=== PATIENT | female | born 1955 | race Caucasian/White ===

== ENCOUNTER → 2016-09-08 | Outpatient (CLI) | payer BC, OTHER ==
--- NOTE | 2016-09-08 11:25 | XR ---
EXAMINATION TYPE: XR KUB DATE OF EXAM: 09/08/2016 11:09 AM HISTORY: Pain Comparison: None.Single KUB is submitted for interpretation. Findings: Right renal calculi: None Visualized. Limited by overlying bowel content. Right ureteral calculi: None Visualized. Left renal calculi: None Visualized. Left ureteral calculi: A linear radiopaque density at the left S5 level measures 1.2 cm x 2 mm . Pelvic calcifications: None Visualized. Bowel gas pattern is unremarkable. No free air. No mass effects. IMPRESSION: 1. linear radiopaque density at the left S5 level measures 1.2 cm x 2 mm .
== END | disposition home or self-care (01) ==
LOC: RADXRMAIN 10:56
PROVIDERS: ATTEND Urology
DX: N20.1 Calculus of ureter (principal)
CPT/HCPCS: 74000

== ENCOUNTER → 2017-02-10 | Outpatient (CLI) | payer BC, OTHER ==
--- NOTE | 2017-02-16 08:44 | MM ---
Reason for exam: screening (asymptomatic). Last mammogram was performed 2 years and 7 months ago. History: Patient is postmenopausal and has history of other cancer at age 19. Family history of premenopausal breast cancer in mother at age 48. Benign excisional biopsy of the right breast, 1989. Took estrogen for 7 years beginning at age 32. Physical Findings: A clinical breast exam by your physician is recommended on an annual basis and results should be correlated with mammographic findings. MG 3D Screening Mammo W/Cad Bilateral CC and MLO view(s) were taken. Prior study comparison: June 28, 2014, bilateral MG screening mammo w CAD. December 09, 2011, bilateral digital screening mammo w/CAD. There are scattered fibroglandular densities. No significant changes when compared with prior studies. ASSESSMENT: Benign, BI-RAD 2 RECOMMENDATION: Routine screening mammogram of both breasts in 1 year.
== END | disposition home or self-care (01) ==
LOC: RADMAMWWP 06:43
PROVIDERS: ATTEND Family Medicine
DX: Z12.31 Encounter for screening mammogram for malignant neoplasm of breast (principal)
CPT/HCPCS: 77063; G0202

== ENCOUNTER 2018-01-10 09:04 | Emergency (ER) | payer BC, OTHER ==
[2018-01-10 09:15] VITALS: BP 131/73; PULSE 80; RESP 18; TEMP 98.1
--- NOTE | 2018-01-10 10:43 | XR ---
EXAMINATION TYPE: XR ankle complete LT DATE OF EXAM: 01/10/2018 COMPARISON: NONE HISTORY: Pain TECHNIQUE: 3 views of the left ankle are submitted for evaluation. FINDINGS: Small focal ossific density adjacent to the medial aspect of the talus could reflect small avulsion fracture. Correlate clinically with point tenderness. Lateral soft tissue swelling noted. An kle mortise is intact. IMPRESSION: 1. Small focal ossific density adjacent to the medial aspect of the talus could reflect small avulsi on fracture. Correlate clinically with point tenderness.
--- NOTE | 2018-01-10 10:47 | ED ---
Lower Extremity Injury HPI - General Chief Complaint: Extremity Injury, Lower Stated Complaint: Left Ankle Injury Time Seen by Provider: 01/10/18 10:00 Source: patient, RN notes reviewed Mode of arrival: ambulatory Limitations: no limitations - History of Present Illness Initial Comments: This is a 62-year-old female with a benign history for any fractures bone who states she twisted her left ankle this morning when she was gardening. She complains of pain and swelling to the left ankle but no other injury. She is able walk on it but still has pain with the edema. No pain to the back to anything proximal to the ankle no foot pain. No other injuries reported. MD Complaint: ankle injury - Related Data Previous Rx's Medication Instructions Recorded Ibuprofen 800 mg PO Q6HR PRN #20 tablet 01/10/18 Allergies Allergy/AdvReac Type Severity Reaction Status Date / Time No Known Allergies Allergy Verified 01/10/18 10:49 Review of Systems ROS Statement: Those systems with pertinent positive or pertinent negative responses have been documented in the HPI. ROS Other: All systems not noted in ROS Statement are negative. Past Medical History Past Medical History: Diabetes Mellitus, Osteoarthritis (OA) Additional Past Medical History / Comment(s): interstitial cystitis History of Any Multi-Drug Resistant Organisms: None Reported Past Surgical History: Cholecystectomy Past Psychological History: No Psychological Hx Reported Smoking Status: Never smoker Past Alcohol Use History: None Reported Past Drug Use History: None Reported General Exam - General Exam Comments Initial Comments: This is a well-developed well-nourished awake alert oriented 3 female Limitations: no limitations General appearance: alert, in no apparent distress Head exam: Present: atraumatic, normocephalic, normal inspection Eye exam: Present: normal appearance, PERRL, EOMI. Absent: scleral icterus, conjunctival injection, periorbital swelling Cardiovascular Exam: Present: regular rate Extremities exam: Present: full ROM, tenderness, normal capillary refill, other (Edema to the left lateral ankle with tenderness palpation no tenderness above or below this. The foot is nontender to palpation) Back exam: Present: full ROM Neurological exam: Present: alert, oriented X3, CN II-XII intact Psychiatric exam: Present: normal affect, normal mood Skin exam: Present: warm, dry, intact, normal color. Absent: rash Course Vital Signs 01/10/18 09:13 Temperature 98.1 F Pulse Rate 80 Respiratory 18 Rate Blood Pressure 131/73 O2 Sat by Pulse 100 Oximetry Medical Decision Making - Medical Decision Making I did discuss findings with the patient are is evidence of a possible avulsion fracture of the talus on the medial aspect patient is somewhat tender over this area and reexamination. After discussion with her she'll be placed in a stirrup splint. She was cautioned about weightbearing crutches will be ordered she is a follow-up with orthopedics ice elevation and Motrin for pain. - Radiology Data Radiology results: image reviewed Interpreted by me: I did review the imaging and report there is evidence of a possible small avulsion injury to the medial aspect of the talus. The fibula is intact. Disposition Clinical Impression: Fracture of talus of left ankle, closed, Left ankle sprain Disposition: HOME SELF-CARE Condition: Good Instructions: Ankle Sprain (ED), Talar Fracture in Adults (ED) Additional Instructions: No weightbearing, use crutches, Motrin for pain, orthopedic follow-up Prescriptions: Ibuprofen 800 mg PO Q6HR PRN #20 tablet PRN Reason: Pain Is patient prescribed a controlled substance at d/c from ED?: No Referrals: Oscar Mccann DO [Primary Care Provider] - 1-2 days Rell Montalvo DO [Doctor of Osteopathic Medicine] - 1-2 days
[2018-01-10] MEDS ORDERED: IBUPROFEN 800 MG TAB PO STA (11:13)
== END 2018-01-10 11:30 | disposition home or self-care (01) ==
LOC: EC 09:04
DX: S92.152A Displaced avulsion fracture (chip fracture) of left talus, initial encounter for closed fracture (principal); X50.1XXA Overexertion from prolonged static or awkward postures, initial encounter; Y93.H2 Activity, gardening and landscaping; Y92.007 Garden or yard of unspecified non-institutional (private) residence as the place of occurrence of the external cause
CPT/HCPCS: 99283; 29515; 73610; L4350

== ENCOUNTER 2018-02-18 20:35 | Emergency (ER) | payer BC, OTHER ==
[2018-02-18] MEDS ORDERED: SODIUM CHLORIDE 0.9% 1,000 ML IV STA (21:51)
[2018-02-18] MEDS ORDERED: MORPHINE SULFATE 2 MG/ML SYRINGE IVP STA (21:51)
[2018-02-18] MEDS ORDERED: ONDANSETRON 4 MG/2 ML VIAL IVP STA (21:51)
--- NOTE | 2018-02-18 22:18 | ED ---
Abdominal Pain HPI - General Chief Complaint: Abdominal Pain Stated Complaint: Abd pain Time Seen by Provider: 02/18/18 21:43 Source: patient, RN notes reviewed Mode of arrival: ambulatory Limitations: no limitations - History of Present Illness Initial Comments: This is a 62-year-old female who presents to the emergency department with chief complaint of left lower quadrant abdominal pain. Patient states that she has been diagnosed with diverticulosis via colonoscopy. She states that for the past 4 days she has had left lower quadrant abdominal pain. She states the pain has increased in severity since day one. She also states that on the first day of pain onset, she had diarrhea. She reports nausea but denies vomiting. She reports chills but denies fevers. Denies chest pain or shortness of breath. Patient states the pain is made better by curling up into the position. - Related Data Home Medications Medication Instructions Recorded Confirmed Biotin 5 mg PO DAILY 01/10/18 02/18/18 Cholecalciferol [Vitamin D3] 1,000 unit PO DAILY 01/10/18 02/18/18 Cinnamon Bark [Cinnamon] 500 mg PO DAILY 01/10/18 02/18/18 Estrace (Unknown Dose) 1 tab PO HS 01/10/18 02/18/18 [place]-3 Fatty Acids/Fish Oil [Fish 1 cap PO DAILY 01/10/18 02/18/18 Oil 1,000 mg Softgel] Pentosan Polysulfate Sodium 100 mg PO TID 01/10/18 02/18/18 [Elmiron] Simvastatin [Zocor] 40 mg PO HS 01/10/18 02/18/18 metFORMIN HCL [Glucophage Xr] 500 mg PO DAILY 01/10/18 02/18/18 Previous Rx's Medication Instructions Recorded Ibuprofen 800 mg PO Q6HR PRN #20 tablet 01/10/18 Ciprofloxacin HCl 500 mg PO BID 10 Days #20 tab 02/19/18 metroNIDAZOLE [Flagyl] 500 mg PO TID #30 tab 02/19/18 Allergies Allergy/AdvReac Type Severity Reaction Status Date / Time acetaminophen [From [place]] Allergy Unknown Verified 02/18/18 21:08 hydrocodone [From [place]] Allergy Unknown Verified 02/18/18 21:08 Review of Systems ROS Statement: Those systems with pertinent positive or pertinent negative responses have been documented in the HPI. ROS Other: All systems not noted in ROS Statement are negative. Past Medical History Past Medical History: Diabetes Mellitus, Osteoarthritis (OA) Additional Past Medical History / Comment(s): interstitial cystitis History of Any Multi-Drug Resistant Organisms: None Reported Past Surgical History: Cholecystectomy Past Psychological History: No Psychological Hx Reported Smoking Status: Never smoker Past Alcohol Use History: None Reported Past Drug Use History: None Reported General Exam - General Exam Comments Initial Comments: General: Awake and alert, well-developed; in no apparent distress. HEENT: Head atraumatic, normocephalic. Pupils are equal, round and reactive to light. Extraocular movements intact. Oropharynx moist without erythema or exudate. Neck: Supple. Normal ROM. Cardiovascular: Regular rate and rhythm. No murmurs, rubs or gallops. Chest symmetrical. Respiratory: Lungs clear to auscultation bilaterally. No wheezes, rales or rhonchi. Normal respiratory effort with no use of accessory muscles. Abdomen: Soft, non-distended. There is significant left lower quadrant abdominal pain with associated guarding. No rigidity or rebound. Normal bowel sounds in all 4 quadrants. Musculoskeletal: Normal ROM, no tenderness bilateral upper and lower extremities. Ambulating normally. Skin: [place], warm and dry without rashes or lesions. Neurological: Alert and oriented x3. CN II-XII grossly intact. Speech is fluent and answers are appropriate. No focal neuro deficits. Psychiatric: Normal mood and affect. No overt signs of depression or anxiety noted. Limitations: no limitations Course Vital Signs 02/18/18 21:04 Temperature 98.7 F Pulse Rate 89 Respiratory 16 Rate Blood Pressure 134/85 O2 Sat by Pulse 96 Oximetry Medical Decision Making - Medical Decision Making This is a 62-year-old female who presents to the emergency department with chief complaint of lower quadrant abdominal pain. Patient states that she has a history of diverticulosis. She reports nausea and diarrhea. Denies any fevers. Upon the emergency Department, vital signs are stable and patient is afebrile. There is tenderness on palpation of the left lower quadrant. Patient does have a slightly elevated white count of 13.8 with a left shift. CMP and UA were unremarkable. Computed tomography scan of the abdomen and pelvis was obtained which revealed evidence for sigmoid colon diverticulitis without any complicating processes. Patient given a dose of Flagyl and Cipro while in the emergency department. She will be discharged home with further prescription. Patient is in no acute distress. She is in agreement with plan and voices understanding. All questions answered. - Lab Data Result diagrams: 02/18/18 22:20 02/18/18 22:20 Lab Results 02/18/18 02/18/18 02/18/18 Range/Units 22:20 22:20 22:20 WBC 13.3 H (3.8-10.6) k/uL RBC 5.26 (3.80-5.40) m/uL Hgb 14.7 (11.4-16.0) gm/dL Hct 44.4 (34.0-46.0) % MCV 84.3 (80.0-100.0) fL MCH 28.0 (25.0-35.0) pg MCHC 33.2 (31.0-37.0) g/dL RDW 12.9 (11.5-15.5) % Plt Count 228 (150-450) k/uL Neutrophils % 74 % Lymphocytes % 17 % Monocytes % 7 % Eosinophils % 1 % Basophils % 0 % Neutrophils # 9.7 H (1.3-7.7) k/uL Lymphocytes # 2.2 (1.0-4.8) k/uL Monocytes # 1.0 (0-1.0) k/uL Eosinophils # 0.1 (0-0.7) k/uL Basophils # 0.1 (0-0.2) k/uL PT 9.8 (9.0-12.0) sec INR 1.0 (<1.2) APTT 23.1 (22.0-30.0) sec Sodium 141 (137-145) mmol/L Potassium 4.4 (3.5-5.1) mmol/L Chloride 105 (98-107) mmol/L Carbon Dioxide 24 (22-30) mmol/L Anion Gap 12 mmol/L BUN 12 (7-17) mg/dL Creatinine 0.60 (0.52-1.04) mg/dL Est GFR (CKD-EPI)AfAm >90 (>60 ml/min/1.73 sqM) Est GFR (CKD-EPI)NonAf >90 (>60 ml/min/1.73 sqM) Glucose 134 H (74-99) mg/dL Calcium 9.3 (8.4-10.2) mg/dL Total Bilirubin 0.8 (0.2-1.3) mg/dL AST 12 L (14-36) U/L ALT 25 (9-52) U/L Alkaline Phosphatase 87 (38-126) U/L Total Protein 6.7 (6.3-8.2) g/dL Albumin 4.1 (3.5-5.0) g/dL Amylase 32 (30-110) U/L Lipase 58 (23-300) U/L Urine Color Urine Appearance (Clear) Urine pH (5.0-8.0) Ur Specific [place] (1.001-1.035) Urine Protein (Negative) Urine Glucose (UA) (Negative) Urine Ketones (Negative) Urine Blood (Negative) Urine Nitrite (Negative) Urine Bilirubin (Negative) Urine Urobilinogen (<2.0) mg/dL Ur Leukocyte Esterase (Negative) 02/18/18 Range/Units 22:20 WBC (3.8-10.6) k/uL RBC (3.80-5.40) m/uL Hgb (11.4-16.0) gm/dL Hct (34.0-46.0) % MCV (80.0-100.0) fL MCH (25.0-35.0) pg MCHC (31.0-37.0) g/dL RDW (11.5-15.5) % Plt Count (150-450) k/uL Neutrophils % % Lymphocytes % % Monocytes % % Eosinophils % % Basophils % % Neutrophils # (1.3-7.7) k/uL Lymphocytes # (1.0-4.8) k/uL Monocytes # (0-1.0) k/uL Eosinophils # (0-0.7) k/uL Basophils # (0-0.2) k/uL PT (9.0-12.0) sec INR (<1.2) APTT (22.0-30.0) sec Sodium (137-145) mmol/L Potassium (3.5-5.1) mmol/L Chloride (98-107) mmol/L Carbon Dioxide (22-30) mmol/L Anion Gap mmol/L BUN (7-17) mg/dL Creatinine (0.52-1.04) mg/dL Est GFR (CKD-EPI)AfAm (>60 ml/min/1.73 sqM) Est GFR (CKD-EPI)NonAf (>60 ml/min/1.73 sqM) Glucose (74-99) mg/dL Calcium (8.4-10.2) mg/dL Total Bilirubin (0.2-1.3) mg/dL AST (14-36) U/L ALT (9-52) U/L Alkaline Phosphatase (38-126) U/L Total Protein (6.3-8.2) g/dL Albumin (3.5-5.0) g/dL Amylase (30-110) U/L Lipase (23-300) U/L Urine Color Yellow Urine Appearance Clear (Clear) Urine pH 5.5 (5.0-8.0) Ur Specific [place] 1.018 (1.001-1.035) Urine Protein Trace H (Negative) Urine Glucose (UA) 2+ H (Negative) Urine Ketones Negative (Negative) Urine Blood Negative (Negative) Urine Nitrite Negative (Negative) Urine Bilirubin Negative (Negative) Urine Urobilinogen <2.0 (<2.0) mg/dL Ur Leukocyte Esterase Negative (Negative) - Radiology Data Radiology results: report reviewed CT abdomen and pelvis with contrast impression: Small stable hepatic cyst. Small hiatal hernia. Numerous bilateral stable renal parapelvic cysts. Sigmoid diverticulosis with focal diverticulitis in the mid sigmoid colon that is new compared to old exam. No drainable fluid collection. Extensive fat stranding. Disposition Clinical Impression: Diverticulitis Disposition: HOME SELF-CARE Condition: Good Instructions: Diverticulitis (ED) Additional Instructions: Please take medications as prescribed. Please follow up with primary care provider within 1-2 days. Return to emergency department if symptoms should worsen or any concerns arise. Prescriptions: Ciprofloxacin HCl 500 mg PO BID 10 Days #20 tab metroNIDAZOLE [Flagyl] 500 mg PO TID #30 tab Is patient prescribed a controlled substance at d/c from ED?: No Referrals: Oscar Mccann DO [Primary Care Provider] - 1-2 days Time of Disposition: 00:40
[2018-02-18 22:40] LABS: Appearance,Urine Clear (Clear); Basophils # (A) 0.1 k/uL (0-0.2); Basophils % (A) 0 %; Bilirubin,Urine Negative (Negative); Blood,Urine Negative (Negative); Color,Urine Yellow; Eosinophils # (A) 0.1 k/uL (0-0.7); Eosinophils % (A) 1 %; Glucose,Urine (UA) 2+ (Negative); HCT 44.4 % (34.0-46.0); HGB 14.7 gm/dL (11.4-16.0); Ketones,Urine Negative (Negative); Leukocyte Esterase,Urine Negative (Negative); Lymphocytes # (A) 2.2 k/uL (1.0-4.8); Lymphocytes % (A) 17 %; MCHC 33.2 g/dL (31.0-37.0); MCV 84.3 fL (80.0-100.0); Mean Platelet Volume 6.4; Monocytes % (A) 7 %; Neutrophils # (A) 9.7 k/uL (1.3-7.7); Neutrophils % (A) 74 %; Nitrite,Urine Negative (Negative); PH, Urine 5.5 (5.0-8.0); Platelet Count 228 k/uL (150-450); Protein,Urine Trace (Negative); RBC 5.26 m/uL (3.80-5.40); RDW 12.9 % (11.5-15.5); Specific Gravity,Urine 1.018 (1.001-1.035); Urobilinogen,Urine <2.0 mg/dL (<2.0); WBC 13.3 k/uL (3.8-10.6)
[2018-02-18 22:48] LABS: ALT 25 U/L (9-52); AST 12 U/L (14-36); Albumin 4.1 g/dL (3.5-5.0); Alkaline Phosphatase 87 U/L (38-126); Amylase 32 U/L (30-110); Anion Gap 12 mmol/L; Blood Urea Nitrogen 12 mg/dL (7-17); Calcium 9.3 mg/dL (8.4-10.2); Carbon Dioxide 24 mmol/L (22-30); Chloride 105 mmol/L (98-107); Glucose 134 mg/dL (74-99); Lipase 58 U/L (23-300); Partial Thromboplastin Time 23.1 sec (22.0-30.0); Potassium 4.4 mmol/L (3.5-5.1); Prothrombin Time 9.8 sec (9.0-12.0); Sodium 141 mmol/L (137-145); Total Bilirubin 0.8 mg/dL (0.2-1.3); Total Protein 6.7 g/dL (6.3-8.2)
--- NOTE | 2018-02-19 00:14 | CT ---
EXAMINATION TYPE: CT abdomen pelvis w con DATE OF EXAM: 02/19/2018 COMPARISON: 04/02/2016 HISTORY: LLQ pain CT DLP: 1601.50 mGycm Automated exposure control for dose reduction was used. TECHNIQUE: Helical acquisition of images was performed from the lung bases through the pelvis. CONTRAST: Performed without Oral Contrast and with IV Contrast, patient injected with 100 mL of Isovue 300. FINDINGS: Lung bases are clear of consolidation. There is no pleural effusion. Heart size is normal. There are clips from cholecystectomy. Bile ducts are not dilated. Liver shows a probable 5 mm cyst in the left lobe. There is no pancreatic mass. Spleen appears normal. There is no adrenal mass. Kidneys show satisfactory contrast opacification. There is no hydronephrosi s. There are bilateral multiple renal parapelvic cysts. There is no retroperitoneal adenopathy. Abdom inal aorta is atheromatous. There is wall thickening and inflammatory changes around the mid sigmoid colon. There are numerous si gmoid diverticula. There is no evidence of an abscess. Bladder distends smoothly. There is no free fl uid in the pelvis. Appendix is not definitely seen. There is no sign of appendicitis. The bony struct ures are intact. IMPRESSION: Small stable hepatic cyst. Small hiatal hernia. Numerous bilateral stable renal parapelvic cysts. Sigmoid diverticulosis with focal diverticulitis in the mid sigmoid colon that is new compared to old exam. No drainable fluid collection. Extensive fat stranding.
[2018-02-19] MEDS ORDERED: CIPROFLOXACIN HCL 500 MG TAB PO STA (00:30)
[2018-02-19] MEDS ORDERED: metroNIDAZOLE 500 MG TAB PO STA (00:31)
[2018-02-19 00:58] VITALS: BP 156/98; PULSE 96; RESP 15; TEMP 95.6
== END 2018-02-19 01:00 | disposition home or self-care (01) ==
LOC: EC 20:35
DX: K57.92 Diverticulitis of intestine, part unspecified, without perforation or abscess without bleeding (principal); E11.9 Type 2 diabetes mellitus without complications; M19.90 Unspecified osteoarthritis, unspecified site; Z90.49 Acquired absence of other specified parts of digestive tract; Z79.84 Long term (current) use of oral hypoglycemic drugs; Z79.899 Other long term (current) drug therapy; Z88.5 Allergy status to narcotic agent; Z88.6 Allergy status to analgesic agent
CPT/HCPCS: 36415; 80053; 82150; 83690; 85025; 85610; 85730; 81003; 74177; 99284; 96374; 96375; 96361; J2405; J2270; Q9967

== ENCOUNTER → 2018-06-06 | Outpatient (CLI) | payer BC, OTHER ==
--- NOTE | 2018-06-07 11:30 | MM ---
Reason for exam: screening (asymptomatic). Last mammogram was performed 1 year and 4 months ago. History: Patient is postmenopausal and has history of other cancer at age 19. Family history of premenopausal breast cancer in mother at age 48. Benign excisional biopsy of the right breast, 1989. Took estrogen for 7 years beginning at age 32. Physical Findings: A clinical breast exam by your physician is recommended on an annual basis and results should be correlated with mammographic findings. MG 3D Screening Mammo W/Cad Bilateral CC and MLO view(s) were taken. Prior study comparison: February 10, 2017, bilateral MG 3d screening mammo w/cad. June 28, 2014, bilateral MG screening mammo w CAD. There are scattered fibroglandular densities. No significant changes when compared with prior studies. ASSESSMENT: Negative, BI-RAD 1 RECOMMENDATION: Routine screening mammogram of both breasts in 1 year.
== END | disposition home or self-care (01) ==
LOC: RADMAMWWP 06:57
PROVIDERS: ATTEND Family Medicine
DX: Z12.31 Encounter for screening mammogram for malignant neoplasm of breast (principal)
CPT/HCPCS: 77063; 77067

== ENCOUNTER → 2018-11-30 | Outpatient (CLI) | payer BC, OTHER ==
--- NOTE | 2018-11-30 19:35 | CONS ---
CONSULTATION DATE OF SERVICE: 11/30/2018 63-year-old lady who has been evaluated in the Sleep Center for multiple awakenings from sleep difficulties to initiate sleep and tiredness and sleepiness during the day and snoring. HISTORY OF PRESENT ILLNESS/SLEEP-WAKE EVALUATION: SLEEP SCHEDULE: Patient usual sleep schedule from around 8p.m. to 6 a.m. FALLING ASLEEP: She does have problem with falling asleep, although no TV in bedroom. DURING SLEEP: She has loud snoring according to her . She grinds her teeth awakenings up to 10 times from sleep with up to 5 episodes of nocturia, heartburn, dry mouth, sleep talking and sweating. DURING THE DAY/SLEEP WAKE EVALUATION: In the morning, patient wakes up tired, has difficulties to pay attention. Worries about her sleep, has problem with memory, concentration, irritability, depression. She is ready for nap any time. Feels tired. [place] Sleepiness Scale is 2. No history of hypnagogic hallucinations, sleep paralysis or cataplexy. PAST MEDICAL HISTORY: Positive for diabetes mellitus, acid reflux, hyperlipidemia. Interstitial cystitis. Osteoarthritis. PAST SURGICAL HISTORY: Total hysterectomy, surgery for chronic interstitial cystitis, cholecystectomy, status post right foot osteomyelitis many years ago. MEDICATIONS: glipizide, Lipitor, metformin, Myrbetriq, omeprazole, B12 supplement, Biotin, calcium supplement, fish oil, . SOCIAL HISTORY: Negative for smoking or using alcohol. FAMILY HISTORY: Hyperlipidemia, arthritis, sinus problems, snoring, insomnia, , diabetes. REVIEW OF SYSTEMS: Multiple awakenings from sleep, tiredness and sleepiness during the day. Also difficulties to initiate sleep. PHYSICAL EXAM: A lady without distress, BP 135/81, HR 79, RR 16, height 62 inches, weight 210.8 pounds, body mass index 28.4, temperature 97.6, oxygen saturation at room air 95%. Oropharynx: Low position of soft palate. Mallampati 3. Wide pillars. Slight restriction of nasal breathing. Neck: 15 inches in circumflex. Supple, no JVD. Thyroid is not palpable. LUNGS Clear to percussion and to auscultation. Good air exchange. No wheezing or rhonchi. HEART S1, S2 regular. No murmurs, gallops, or rubs. ABDOMEN: Obese. Soft and nontender. Bowel sounds are present. No organomegaly appreciated. EXTREMITIES No clubbing or cyanosis. [employer] Awake, alert, and oriented X3. Cranial nerves 2 to 7 intact. There is no fasciculation or atrophy. noted. No focal deficits observed. IMPRESSION: 1. Loud snoring, small oropharyngeal air space, multiple awakenings from sleep up to 10 times, feeling tired and sleepy during the day. Obstructive sleep apnea- hypopnea syndrome. 2. Obesity, body mass index 38.4. 3. Diabetes mellitus. 4. Acid reflux. 5. History of intrastitial cystitis. 6. Hyperlipidemia. 7. Status post total hysterectomy. 8. History of osteoarthritis. 9. Status post cholecystectomy. 10.Status post osteomyelitis of left foot many years ago. PLAN: 1. Polysomnography for evaluation of patient's breathing during sleep. 2. CPAP/BiPAP titration if sleep study confirms obstructive sleep apnea-hypopnea syndrome. 3. Preferable position during sleep on the side. 4. No driving if patient feels any sleepiness. 5. I will see patient for follow up visit to explain results of testing and following plan. 6. If sleep study will be negative, may consider multiple sleep latency test for objective evaluation patient symptoms of excessive daytime sleepiness. Thank you very much for referring this patient for consultation. Sincerely, Keven Marcum MD, PhD, FAASM Diplomat of [employer] [employer] [employer] [facility] [employer] MMODL / IJN: [id number] /
== END ==
LOC: SLEEP 13:07
PROVIDERS: ATTEND Internal Medicine
DX: G47.33 Obstructive sleep apnea (adult) (pediatric) (principal); E66.9 Obesity, unspecified; E11.9 Type 2 diabetes mellitus without complications; K21.9 Gastro-esophageal reflux disease without esophagitis; E78.5 Hyperlipidemia, unspecified; N30.10 Interstitial cystitis (chronic) without hematuria; Z90.49 Acquired absence of other specified parts of digestive tract; Z90.710 Acquired absence of both cervix and uterus; Z68.38 Body mass index [BMI] 38.0-38.9, adult; Z87.39 Personal history of other diseases of the musculoskeletal system and connective tissue; Z79.899 Other long term (current) drug therapy
CPT/HCPCS: 99211

== ENCOUNTER → 2019-05-10 | Outpatient (CLI) | payer BC, OTHER ==
--- NOTE | 2019-05-10 15:21 | SFUN ---
SLEEP CENTER FOLLOW UP NOTE DATE OF SERVICE: 05/10/2019 A 64-year-old lady who has been followed in the Sleep Center to discuss results of sleep study and following plan. I discussed results of home sleep apnea test with the patient. Sleep study showed that she had 43 episodes of obstructive apneas, 1 episode of central apneas, 67 hypopneas with total apnea-hypopnea index 16.2 with oxygen desaturation to 85%. Pulse rate was in the range 64 and 103. Patient presented with symptoms of excessive daytime sleepiness. [place] Sleepiness Scale is 14 today. MEDICATIONS: Glipizide, Lipitor, metformin, Myrbetriq, omeprazole, B12, Biotin, calcium supplement, fish oil, Trulicity. PHYSICAL EXAM: Patient in no distress, BP 115/87, HR 88, RR 16, weight 201, height 5, 2, body mass index 36.7, oxygen saturation at room air 96%. OROPHARYNX: Low position of soft palate, Mallampati 3. ABDOMEN: Slightly obese. Neck Supple, no JVD. Thyroid is not palpable. LUNGS Clear to percussion and to auscultation. Good air exchange. No wheezing or rhonchi. HEART S1, S2 regular. No murmurs, gallops, or rubs. EXTREMITIES No clubbing or cyanosis. GENER[employer]CHASING AGENT Awake, alert, and oriented X3. Cranial nerves 2 to 7 intact. There is no fasciculation or atrophy. noted. No focal deficits observed. IMPRESSION: 1. Moderate obstructive sleep apnea-hypopnea syndrome by results of home sleep apnea test. Patient presented with symptoms of excessive daytime sleepiness. 2. Diabetes mellitus. 3. Obesity. 4. Acid reflux. 5. Hyperlipidemia. 6. History of interstitial cystitis. 7. Status post total hysterectomy. 8. History of osteoarthritis. 9. Status post cholecystectomy. 10.Status post osteomyelitis of left foot many years ago. PLAN: 1. Patient will be started on treatment with AutoPap and should use equipment every night for the whole night. 2. We fit patient with full-face mask. I think Dream Wear will be a good choice for her, she his difficulties to breathe through the nose. 3. Losing weight. 4. Sleep hygiene with regular time in bed for at least 8 hours. 5. No driving if feeling sleepiness. 6. Followup visit after patient with status post treatment with AutoPap to evaluate her clinical response from treatment, compliance with treatment and make any necessary adjustments. Thank you very much for allowing me to participate in the management of your patient. Sincerely, Keven Marcum MD, PhD, FAASM Diplomat of [employer] [facility] MMODL / CELSO: [id number] /
== END | disposition home or self-care (01) ==
LOC: SLEEP 13:45
PROVIDERS: ATTEND Internal Medicine
DX: G47.33 Obstructive sleep apnea (adult) (pediatric) (principal); E11.9 Type 2 diabetes mellitus without complications; E66.9 Obesity, unspecified; K21.9 Gastro-esophageal reflux disease without esophagitis; E78.5 Hyperlipidemia, unspecified; Z68.36 Body mass index [BMI] 36.0-36.9, adult; Z87.448 Personal history of other diseases of urinary system; Z87.39 Personal history of other diseases of the musculoskeletal system and connective tissue; Z90.49 Acquired absence of other specified parts of digestive tract; Z90.710 Acquired absence of both cervix and uterus; Z98.890 Other specified postprocedural states; Z79.84 Long term (current) use of oral hypoglycemic drugs; Z79.899 Other long term (current) drug therapy

== ENCOUNTER → 2019-08-23 | Outpatient (CLI) | payer BC, OTHER ==
--- NOTE | 2019-08-23 21:43 | PN ---
PROGRESS NOTE DATE OF SERVICE: 08/23/2019 64-year-old lady [facility] her sleep problems. Several months ago, patient had home sleep apnea test which showed obstructive sleep apnea with apnea-hypopnea index in the range of 16.2. After that, the patient was started on treatment with CPAP. Today is her first visit after she started to use CPAP. CPAP is in automatic regimen with range of the pressure 5-15. The patient has difficulties to use CPAP. Does not like the pressure. Does not like the warm air coming from the from the machine. She mentioned that she has difficulties to fall asleep and she wakes up from sleep many times. [place] Sleepiness Scale today is 0. I checked her CPAP unit, range of the pressure as already mentioned above 5-15, average pressure is 7.8. The patient used machine 8 out of 30 nights and 1 night, it was more than 4 hours. Average usage was 2.3 hours. Leak 4 L/minute, which is normal. Apnea-hypopnea index 2.0, which is also normal, but again patient could not use the machine. MEDICATIONS: Glipizide, Lipitor, metformin, Myrbetriq, omeprazole, B12, biotin, calcium supplement, fish oil, Trulicity. PHYSICAL EXAM: Patient in no distress. VITAL SIGNS: BP 158/95, HR 83, RR 16, weight 207, temp 97.4, oxygen saturation at room air 97%. Oropharynx: Low position of soft palate. Mallampati 3. Abdomen slightly. NECK: Supple, no JVD. Thyroid is not palpable. LUNGS: Clear to percussion and to auscultation. Good air exchange. No wheezing or rhonchi. HEART: S1, S2 regular. No murmurs, gallops, or rubs. ABDOMEN: Slightly obese. Soft and nontender. Bowel sounds are present. No organomegaly appreciated. EXTREMITIES: No clubbing or cyanosis. [employer]: Awake, alert, and oriented X3. Cranial nerves 2 to 7 intact. There is no fasciculation or atrophy. noted. No focal deficits observed. IMPRESSION: 1. Moderate obstructive sleep apnea-hypopnea syndrome. Patient has difficulties with the usage of CPAP. 2. Insomnia with difficulties to initiate and maintain sleep. 3. Diabetes mellitus 4. 4. Acid reflux. 5. Hyperlipidemia. 6. History of interstitial cystitis. 7. Status post total hysterectomy. 8. History of osteoarthritis. 9. Status post cholecystectomy. 10.Status post osteomyelitis of the left foot for many years ago. PLAN: 1. CPAP titration for evaluation of effective CPAP pressure and to properly fit patient with mask. 2. I discussed with the patient psychological techniques for treatment of insomnia including stimulus control, paradoxical intention, worry time, no watching clock in bedroom, to use less bright light in the evening. No bright light in the morning. 3. Watching weight. 4. No driving if feeling sleepiness. Thank you very much for allowing me to participate in management of your patient. Sincerely, Keven Marcum MD, PhD, FAASM Diplomat of [employer] [facility] [place] MMODL / LILIANEN: [phone] /
== END | disposition home or self-care (01) ==
LOC: SLEEP 15:30
PROVIDERS: ATTEND Internal Medicine
DX: G47.33 Obstructive sleep apnea (adult) (pediatric) (principal); E11.9 Type 2 diabetes mellitus without complications; E78.5 Hyperlipidemia, unspecified; K21.9 Gastro-esophageal reflux disease without esophagitis; Z90.49 Acquired absence of other specified parts of digestive tract; Z87.39 Personal history of other diseases of the musculoskeletal system and connective tissue; Z87.42 Personal history of other diseases of the female genital tract; Z90.710 Acquired absence of both cervix and uterus; Z99.89 Dependence on other enabling machines and devices; Z79.891 Long term (current) use of opiate analgesic; Z79.899 Other long term (current) drug therapy

== ENCOUNTER → 2022-06-24 | Outpatient (CLI) | payer MEDICARE, OTHER ==
--- NOTE | 2022-06-24 16:19 | MM ---
Reason for Exam: Screening (asymptomatic). Last mammogram was performed 4 year(s) and 1 month(s) ago. Patient History: Menarche at age 17. First Full-Term at age 32. Late child-bearing (after 32). Left ovary removed at age 34. Right ovary removed at age 32. Hysterectomy at age 32. Postmenopausal. Other cancer, age 19. Estrogen for 7 years from age 32 until age 56. 1990, Benign Excisional Biopsy on the right side. Mother had breast cancer, age 48. Risk Values: Daily 5 year model risk: 3.6%. NCI Lifetime model risk: 13.2%. Physical Findings: Physical Exam Performed Before Images Prior Study Comparison: 12/09/2011 Bilateral Screening Mammogram, [facility]. 06/28/2014 Bilateral Screening Mammogram, [facility]. 02/10/2017 Bilateral Screening Mammogram, [facility]. 06/06/2018 Bilateral Screening Mammogram, [facility]. Tissue Density: There are scattered fibroglandular densities. Findings: Analyzed By CAD. There are symmetrical stable. No suspicious groups of microcalcifications, spiculated or lobular masses, architectural distortion or other secondary signs of malignancy are mammographically apparent. Overall Assessment: Benign, BI-RAD 2 Management: Screening Mammogram of both breasts in 1 year. A negative mammogram report should not preclude additional follow up of suspicious palpable abnormalities. Patient should continue monthly self breast exam. A clinical breast exam by your physician is recommended on an annual basis and results should be correlated with mammographic findings. Electronically signed and approved by: Oscar Pepe D.O. Radiologis
== END | disposition home or self-care (01) ==
LOC: RADMAMWWP 07:04
PROVIDERS: ATTEND Family Medicine
DX: Z12.31 Encounter for screening mammogram for malignant neoplasm of breast (principal); Z78.0 Asymptomatic menopausal state; Z80.3 Family history of malignant neoplasm of breast; Z90.721 Acquired absence of ovaries, unilateral
CPT/HCPCS: 77063; 77067